=== PATIENT | male | born 1985 | race Caucasian/White ===

== ENCOUNTER 2017-10-02 19:53 | Emergency (ER) | payer MEDICAID ==
[~2017-10-02] VITALS: Ht 185.4 cm; Wt 134.3 kg
[2017-10-02 20:08] VITALS: Ht 185.4 cm; Wt 134.3 kg
[2017-10-02 21:15] LABS: BASOPHIL % 0.3 % (0-2); PLATELET COUNT 290 x10^3mcL (130-400); RED CELL DISTRIBUTION WIDTH 14.2 % (11.5-14.5)
[2017-10-02 21:35] LABS: CALCIUM 9.6 mg/dL (8.5-10.1); CARBON DIOXIDE 22.7 mmol/L (21-32); CHLORIDE SERUM 107 mmol/L (98-107); GFR1 > 60 mL/min; GLUCOSE SERUM 221 mg/dL (74-106); POTASSIUM SERUM 4.1 mmol/L (3.5-5.1); SODIUM SERUM 142 mmol/L (136-145)
[2017-10-02 21:39] LABS: ALBUMIN 3.8 g/dL (3.4-5.0); ALKALINE PHOSPHATASE 91 U/L (46-116); ALT/SGPT 45 U/L (16-63); AST/SGOT 19 U/L (15-37); BILIRUBIN TOTAL 0.21 mg/dL (0.20-1.00); LIPASE 133 IU/L (73-393); TOTAL PROTEIN, SERUM 7.7 g/dL (6.4-8.2)
[2017-10-02 21:56] LABS: UA SPECIFIC GRAVITY 1.025 (1.005-1.035); microscopic required? YES; urine erythrocyte 1+ (NEGATIVE)
[2017-10-03 00:15] VITALS: BP 130/76
== END 2017-10-03 00:15 | disposition home or self-care (01) ==
LOC: ED 19:53
PROVIDERS: Emergency Medicine
DX: N20.1 Calculus of ureter (principal); R11.10 Vomiting, unspecified; I10 Essential (primary) hypertension
CPT/HCPCS: J1885; J2270; J2405; J2543